=== PATIENT | male | born 1965 | race Hispanic/Latino ===

== ENCOUNTER 2019-04-07 11:09 | Outpatient (CLI) | payer MEDICARE ==
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
== END 2019-04-07 11:10 | disposition home or self-care (01) ==
LOC: MRI 11:09
PROVIDERS: ATTEND Psychiatry & Neurology Neurology
DX: J39.2 Other diseases of pharynx (principal); G43.709 Chronic migraine without aura, not intractable, without status migrainosus
CPT/HCPCS: 70551